=== PATIENT | female | born 1960 | race Two or more races ===

== ENCOUNTER 2018-10-30 08:19 | Outpatient (CLI) | payer OTHER ==
[~2018-10-30 08:19] MED LIST: CALAN SR120 MG; SYNTHROID150 MCG
== END 2018-10-30 08:46 | disposition home or self-care (01) ==
LOC: TOM 08:19
DX: K57.32 Diverticulitis of large intestine without perforation or abscess without bleeding (principal); R10.32 Left lower quadrant pain; K62.5 Hemorrhage of anus and rectum

== ENCOUNTER 2020-08-07 10:48 | Emergency (ER) | payer OTHER ==
[~2020-08-07] VITALS: Ht 157.5 cm; Wt 81.6 kg
== END 2020-08-07 19:41 | disposition home or self-care (01) ==
LOC: ER 10:48
DX: K57.90 Diverticulosis of intestine, part unspecified, without perforation or abscess without bleeding (principal); Z03.818 Encounter for observation for suspected exposure to other biological agents ruled out